=== PATIENT | female | born 1975 | race Asian ===

== ENCOUNTER 2018-08-22 02:13 | Emergency (ER) | payer OTHER ==
[2018-08-22 03:17] LABS: ADD MAN DIFF? NO
[2018-08-22 03:21] LABS: BASOPHILS % 0.3 % (0.0-2.0); EOSINOPHILS # 0.1 10^3/ul (0.0-0.5); EOSINOPHILS % 0.6 % (0.0-7.0); HEMATOCRIT 41.5 % (37.0-47.0); HEMOGLOBIN 13.9 g/dl (12.0-16.0); LYMPHOCYTES % 25.8 % (15.0-51.0); MEAN CORPUSCULAR HEMOGLOBIN 30.2 pg (29.0-33.0); MEAN CORPUSCULAR HGB CONC 33.5 g/dl (32.0-37.0); MEAN PLATELET VOLUME 10.7 fl (7.4-10.4); MONOCYTE # 0.6 10^3/ul (0.3-0.9); MONOCYTES % 5.6 % (0.0-11.0); NEUTROPHIL # 7.7 10^3/ul (1.6-7.5); NEUTROPHILS % 67.4 % (39.0-77.0); PLATELET COUNT 194 10^3/UL (140-415); RED BLOOD COUNT 4.61 10^6/ul (4.20-5.40)
[2018-08-22 03:21] LABS: WHITE BLOOD COUNT 11.5 10^3/ul (4.8-10.8)
[2018-08-22] MEDS: KETOROLAC 30 MG INJ IV (03:22)
[2018-08-22] MEDS: ONDANSETRON 4 MG INJ IV (03:22)
[2018-08-22] MEDS: DIPHENHYDRAMINE 50 MG INJ IV (03:22)
[2018-08-22 03:23] LABS: POSITIVE DIFF @See below
[2018-08-22] MEDS: SOD CHLORIDE 0.9% 1,000 ML IV (03:23)
[2018-08-22 03:39] LABS: ANION GAP 12 (5-13); BLOOD UREA NITROGEN 12 mg/dl (7-20); CALCIUM 9.1 mg/dl (8.4-10.2); CARBON DIOXIDE 26 mmol/L (21-31); CHLORIDE 101 mmol/L (97-110); CREATININE 0.68 mg/dl (0.44-1.00); Estimated GFR > 60 mL/min (>60); GLUCOSE 111 mg/dl (70-220); POTASSIUM 4.4 mmol/L (3.5-5.1); SODIUM 139 mmol/L (135-144)
== END 2018-08-22 04:46 | disposition home or self-care (01) ==
LOC: FTE 02:13
DX: R51 Headache (principal); R11.2 Nausea with vomiting, unspecified
CPT/HCPCS: 36415; 80048; 81025; 85025; 96361; 96374; 96375; 99284-25